=== PATIENT | female | born 1955 | race Caucasian/White ===

== ENCOUNTER 2016-10-26 11:06 | Emergency (ER) | payer MEDICARE ==
[2016-10-26 13:08] VITALS: BP 119/64
--- NOTE | 2016-10-26 13:18 | UC ---
Ear Complaint HPI - HPI Summary HPI Summary: patient is not able to hear our of left ear, started yesterday, denies pain, she typically gets wax buildup. Denies any other symptoms. - History of Current Complaint Chief Complaint: UCEar Stated Complaint: EAR PAIN Time Seen by Provider: 10/26/16 13:09 Hx Obtained From: Patient ?: No Onset/Duration: Sudden Onset, Lasting Days Severity Initially: Mild Severity Currently: Mild Associated Signs/Symptoms: Positive: Hearing Loss - Allergies/Home Medications Allergies/Adverse Reactions: Allergies Allergy/AdvReac Type Severity Reaction Status Date / Time Iodine Allergy Mild skin Verified 10/26/16 12:59 reddened Home Medications: Home Medications Sulfamethox/Trimethoprim DS* [Bactrim DS 800/160 TAB*] 1 tab PO EVERY OTHER DAY 10/26/16 [History Confirmed 10/26/16] predniSONE TAB* [Deltasone TAB*] 4 mg PO DAILY 10/26/16 [History Confirmed 10/26] PMH/Surg Hx/FS Hx/Imm Hx Previously Healthy: Yes Endocrine History Of: Denies: Diabetes, Thyroid Disease, Hyperthyroidism, Hypothyroidism Cardiovascular History Of: Reports: Hypertension Denies: Pacemaker/ICD Neurological History Of: Denies: TIA, Seizures Psychological History Of: Reports: Anxiety - ON MEDICATION FOR, Depression - ON MEDICATION FOR Cancer History Of: Denies: Breast Cancer - Surgical History Surgical History: Yes Surgery Procedure, Year, and Place: right leg AKA. appendectomy. ischemic bowel. . I&D RIGHT LEG - Family History Known Family History: Positive: Cardiac Disease, Hypertension - Social History Alcohol Use: None Substance Use Type: None Smoking Status (MU): Light Every Day Tobacco Smoker Type: Cigarettes Amount Used/How Often: 5 cigarettes a day Have You Smoked in the Last Year: Yes - Immunization History Most Recent Influenza Vaccination: 2012 Most Recent Tetanus Shot: unk Most Recent Pneumonia Vaccination: 2012 Review of Systems Constitutional: Negative Skin: Negative Eyes: Negative ENT: Ear Ache, Other - decreased hearing Respiratory: Negative Cardiovascular: Negative Gastrointestinal: Negative Genitourinary: Negative Motor: Negative Neurovascular: Negative Musculoskeletal: Negative Neurological: Negative Psychological: Negative All Other Systems Reviewed And Are Negative: Yes Physical Exam Triage Information Reviewed: Yes Appearance: Well-Appearing, Well-Nourished, Pain Distress Vital Signs: Initial Vital Signs Temp 97.9 F 10/26/16 13:03 Pulse 90 10/26/16 13:03 Resp 16 10/26/16 13:03 BP 119/64 10/26/16 13:03 Pulse Ox 97 10/26/16 13:03 Vital Signs Reviewed: Yes Eye Exam: Normal ENT: Positive: Other: - left cerumen impaction, Right TM pearly garcia Dental Exam: Normal Neck exam: Normal Neck: Positive: Supple, Nontender, No Lymphadenopathy Respiratory Exam: Normal Respiratory: Positive: Chest non-tender, Lungs clear, Normal breath sounds Cardiovascular Exam: Normal Cardiovascular: Positive: RRR, No Murmur, Pulses Normal Abdominal Exam: Normal Abdomen Description: Positive: Nontender, No Organomegaly, Soft Bowel Sounds: Positive: Present Musculoskeletal Exam: Normal Musculoskeletal: Positive: Strength Intact, ROM Intact, No Edema Neurological Exam: Normal Neurological: Positive: Alert, Muscle Tone Normal Psychological Exam: Normal Skin Exam: Normal Ear Complaint Course/Dx - Course Course Of Treatment: hx obtained, exam performed, medication reviewed, left ear irrigation ordered and performed with good results - Differential Dx/Diagnosis Differential Diagnosis/HQI/PQRI: Cerumen Impaction, Otitis Externa, Otitis Media , URI Provider Diagnoses: left ear cerumen impaction. decreased hearing Discharge - Discharge Plan Condition: Stable Disposition: HOME Patient Education Materials: Cerumen Impaction (ED) Referrals: Ivana Oneal MD [Primary Care Provider] - Additional Instructions: Today you had your ear irrigated for cerumen removal. Follow up as needed.
== END 2016-10-26 13:40 | disposition home or self-care (01) ==
LOC: UCCORT 11:06
DX: H61.22 Impacted cerumen, left ear (principal); I10 Essential (primary) hypertension; F41.8 Other specified anxiety disorders; Z89.611 Acquired absence of right leg above knee; F17.210 Nicotine dependence, cigarettes, uncomplicated
CPT/HCPCS: 99213; G0463

== ENCOUNTER 2017-12-11 17:45 | Emergency (ER) | payer MEDICARE ==
--- NOTE | 2017-12-11 20:45 | RAD ---
INDICATION: Chest pain COMPARISON: March 26, 2014 TECHNIQUE: PA dual-energy views were obtained. FINDINGS: Bones/Soft Tissues: There are no acute bony findings. Cardiomediastinal: The cardiomediastinal silhouette is normal. Lungs: There are no infiltrates. There is hyperinflation. Pleura: There are no pleural effusions. Other: None IMPRESSION: HYPERINFLATION. NO ACTIVE DISEASE.
[2017-12-11 20:53] LABS: ABS Basophils 0 10^3/ul (0-0.2); ABS Eosinophils 0.2 10^3/ul (0-0.6); ABS Lymphocytes 1.5 10^3/ul (1.0-4.8); ABS Monocytes 0.7 10^3/ul (0-0.8); ABS Neutrophils 5.3 10^3/ul (1.5-7.7); ABS Nucleated RBC 0 10^3/ul; Eosinophil % 2.4 % (0-6); Hematocrit 41 % (35-47); Lymphocyte % 19.8 % (25-47); Mean Corpuscular HGB Conc 35 g/dl (31-36); Mean Corpuscular Hemoglobin 34 pg (27-31); Mean Corpuscular Volume 98 fL (80-97); Mean Platelet Volume 8.7 um3 (7.4-10.4); Nucleated Red Blood Cells % 0; Platelet Count 237 10^3/ul (150-450); Red Blood Count 4.17 10^6/ul (4.0-5.4); Red Cell Distribution Width 15 % (10.5-15); White Blood Count 7.7 10^3/ul (3.5-10.8)
[2017-12-11 21:06] VITALS: BP 167/89
[2017-12-11 21:15] LABS: EGFR Non-African American 58.9 (>60)
== END 2017-12-11 22:21 | disposition left against medical advice (07) ==
LOC: ED 17:45
DX: R07.9 Chest pain, unspecified (principal); Z53.21 Procedure and treatment not carried out due to patient leaving prior to being seen by health care provider
CPT/HCPCS: 36415; 71045; 80053; 83605; 84484; 85025; 93005; 99282

== ENCOUNTER 2018-10-28 12:12 | Emergency (ER) | payer MEDICARE ==
--- OUTSIDE RECORDS SUMMARY | 2018-10-28 12:17 | XMS REPORT | Continuity of Care Document ---
:1955 External Reference #:[id number] Author Name Vandana Burns PA Address [address] [place] [address] Care Team Providers Name Role Phone Vandana Burns PA Care Team Information Tunneller Unavailable Vandana Burns PA Primary Care Physician Unavailable Payers Date Identification Numbers Payment Provider Subscriber Policy Number: [id number] [employer] Lyric Rosenthal PayID: [id number] [address] [address] [place] [address] Advance Directives Description No Information Available Problems Date Description Provider Status Onset: 11/18/2016 Mixed hyperlipidemia Butch Dill MD Active Onset: 09/28/2017 Closed fracture of metatarsal bone Ana Myers PA Active Onset: 10/05/2017 Closed fracture of third metatarsal bone Ana Myers PA Active Onset: 10/05/2017 Symptom of skin and integumentary tissue Ana Myers PA Active Onset: 10/13/2017 Closed fracture of base of fifth Ana Myers PA Active metatarsal bone Onset: 10/13/2017 Closed fracture of fourth metatarsal Ana Myers PA Active bone Onset: 02/23/2018 Closed fracture of phalanx of foot Ana Myers PA Active Family History Date Family Member(s) Observation Comments General Cancer First Brother Pancreatic Cancer Social History Type Date Description Comments Sex Unknown Marital Status Patient is Lives With Alone Home Environment Lives Alone Diet Healthy, Well Balanced Occupation Retired Work Status Retired Hand Dominance Right-handed ADL's/IADL's Dependent with Uses a motorized ambulating wheelchair when Left orthosis is removed. Tobacco Use Start: Unknown Currently smokes 1-5 5 Not going to quit. Cigarettes Daily Smoking Status Reviewed: 10/21/18 Currently smokes 1-5 5 Not going to quit. Cigarettes Daily Smokeless Tobacco Never Used Smokeless Tobacco ETOH Use Rarely consumes alcohol Tobacco Use Start: Unknown Light tobacco smoker (10 or fewer cigarettes/day) Recreational Drug Use Denies Drug Use Allergies, Adverse Reactions, Alerts Date Description Reaction Status Severity Comments 09/28/2017 Iodine Active 11/18/2016 NKDA Inactive Medications Medication Date Status Form Strength Qnty SIG Indications Ordering Provider Clindamycin Active Capsules 300mg 28cap 1 tab by [id number] TIMMY Rizzo 9 s mouth four MD Steven times a day as directed Fosamax Active Tablets 70mg take one Unknown 0 tablet by mouth once weekly Sulfamethoxazo Active Tablets 800-160mg take one Unknown le/Trimethopri 0 tablet by m DS mouth M-W-F Celexa Active Tablets 20mg 1 by mouth Unknown 0 every day Methotrexate Active Tablets 2.5mg 4 pills Unknown 0 once a week Nifedipine ER Active Tablets ER 30mg 1 by mouth Unknown 30 MG 0 24HR every day Folic Acid Active 5mg 1 po daily Unknown 0 Prednisone Active Tablets 1mg 4 po daily Unknown 0 Gabapentin Active Tablets 600mg 1 po qid Hernandez, 0 Samuel MOE Lidocaine Active Ointment 5% Apply A Unknown 0 Small Amount To Affected Area Two Times A Day Clobetasol Active Gel 0.05% Apply A Unknown Propionate 0 Small Amount Over Affected Areas With Psoriasis Two Times A Da Atorvastatin Active Tablets 40mg 1 po daily Salman, Calcium 0 MD Ivana Humira Active PSKT 40mg/0.8M as Unknown 0 L directed Omeprazole Hx Capsules 20mg 30cap 1 tab by Aniyah 7 - DR s mouth in Butch, Devaughn morning with breakfast Golytely Hx Solution 236gm 4000m drink half Z12.11 Aniyah 7 - Rec l the Butch Unknown evening MD before and half the morning of the procedure (1 cup every 10') Dulcolax Hx Tablets DR 5mg 4tabs 4 tablets Z12.11 Aniyah 7 - taken a , Butch, Unknown 8pm the MD day before the procedure Magnesium Hx Solution 1.745GM/3 296ml Z12.11 Aniyah Citrate 7 - 0ML , Butch, Mateusz MOE Meloxicam Hx Tablets 7.5mg 1 by mouth Unknown 0 - every day 8 Clobetasol Hx Cream 0.05% Apply To Unknown Propionate 0 - Affected Area S 7 Three Times A Day Nifedical XL Hx Tablets ER 30mg Unknown 0 - 24HR 7 Sulfamethoxazo Hx Tablets 400-80mg Take One Unknown le-Trimethopri 0 - Tablet By m Mouth 7 Every Day Cephalexin Hx Capsules 500mg 30cap by mouth Juan R 0 - s as Elysia A directed [employer]UP[employer]AF[employer] ADVISER 8 Immunizations Description No Information Available Vital Signs Date Vital Result Comment 10/21/2018 10:40am BP Systolic Sitting Left Arm 142 mmHg BP Diastolic Sitting Left Arm 62 mmHg Body Temperature 97.6 F Heart Rate 98 /min Weight 160.25 lb O2 % BldC Oximetry 97 % 08/13/2018 2:07pm BP Systolic Sitting Left Arm 124 mmHg BP Diastolic Sitting Left Arm 72 mmHg Body Temperature 98.7 F Heart Rate 91 /min Height 67.5 inches 5'7.50" Weight 165.25 lb BMI (Body Mass Index) 25.5 kg/m2 BSA (Body Surface Area) 1.87 m2 [place] body weight in kilograms 62 kg O2 % BldC Oximetry 96 % 02/23/2018 11:40am BP Systolic Sitting Left Arm 122 mmHg BP Diastolic Sitting Left Arm 85 mmHg Body Temperature 97.8 F Heart Rate 85 /min Respiratory Rate 17 /min Height 69 inches 5'9" Per Patient Weight 160.00 lb BMI (Body Mass Index) 23.6 kg/m2 BSA (Body Surface Area) 1.88 m2 [place] body weight in kilograms 66 kg O2 % BldC Oximetry 97 % 11/12/2017 1:17pm BP Systolic 134 mmHg BP Diastolic 76 mmHg Body Temperature 97.7 F Heart Rate 98 /min Respiratory Rate 17 /min Height 69 inches 5'9" Per Patient Weight 160.00 lb BMI (Body Mass Index) 23.6 kg/m2 BSA (Body Surface Area) 1.88 m2 [place] body weight in kilograms 66 kg Pain Level 0 10/26/2017 1:04pm BP Systolic Sitting Right Arm 117 mmHg BP Diastolic Sitting Right Arm 74 mmHg Body Temperature 97.2 F Heart Rate 92 /min Respiratory Rate 20 /min Height 69 inches 5'9" Per Patient Weight 160.00 lb BMI (Body Mass Index) 23.6 kg/m2 BSA (Body Surface Area) 1.88 m2 [place] body weight in kilograms 66 kg O2 % BldC Oximetry 93 % Ra Pain Level 0 10/13/2017 1:34pm BP Systolic Sitting Left Arm 120 mmHg BP Diastolic Sitting Left Arm 73 mmHg Heart Rate 87 /min Respiratory Rate 16 /min Height 69 inches 5'9" Per Patient Weight 160.00 lb BMI (Body Mass Index) 23.6 kg/m2 BSA (Body Surface Area) 1.88 m2 [place] body weight in kilograms 66 kg O2 % BldC Oximetry 96 % Ra Pain Level 0 10/05/2017 1:27pm BP Systolic Sitting Left Arm 135 mmHg BP Diastolic Sitting Left Arm 80 mmHg Height 69 inches 5'9" Per Patient Weight 158.00 lb pt stated BMI (Body Mass Index) 23.3 kg/m2 BSA (Body Surface Area) 1.87 m2 [place] body weight in kilograms 66 kg Pain Level 0 09/28/2017 11:34am BP Systolic Sitting Right Arm 133 mmHg BP Diastolic Sitting Right Arm 76 mmHg Body Temperature 97.1 F Heart Rate 79 /min Respiratory Rate 18 /min Height 69 inches 5'9" Per Patient Weight 158.00 lb Estimated-Per Pt BMI (Body Mass Index) 23.3 kg/m2 BSA (Body Surface Area) 1.87 m2 [place] body weight in kilograms 66 kg 05/28/2017 1:43pm BP Systolic Sitting Left Arm 136 mmHg BP Diastolic Sitting Left Arm 88 mmHg Heart Rate 89 /min Respiratory Rate 16 /min Weight 159.00 lb 05/19/2017 11:47am BP Systolic Sitting Left Arm 150 mmHg BP Diastolic Sitting Left Arm 80 mmHg Heart Rate 82 /min Respiratory Rate 16 /min Weight 158.00 lb BSA (Body Surface Area) 1.87 m2 [place] body weight in kilograms 66 kg 11/18/2016 11:14am BP Systolic 132 mmHg BP Diastolic 82 mmHg Heart Rate 90 /min Weight 162.00 lb Results Test Date Facility Test Result H/L Range Note Urine Dipstick 08/13/2018 [facility] Color yellow Yellow Ua Clarity clear Clear Ua Leuko trace Negative Ua Nitrite negative Negative Ua Urobilinogen 0.2 0.2 - 1.0 E.U./dL Ua Protein negative Negative Ua PH 6.5 6.5-7.5 Ua Blood trace Negative Ua Specific [place] 1.005 Low 1.010-1.030 Ua Ketones negative Negative Ua Bilirubin negative Negative Ua Glucose negative Negative Comprehensive Metabolic 05/19/2017 [facility] Glucose 110 mg/dL High 74-106 1 [address] [place] [address] [phone] BUN 13 mg/dL N 7-18 Creatinine 0.8 mg/dL N 0.6-1.3 Glom Filtration Rate, Estimate >60 mL/min >60 If >60 mL/min >60 2 BUN/Creat 16.2 ratio Sodium 140 mmol/L N 136-145 Potassium 3.7 mmol/L N 3.5-5.1 Chloride 105 mmol/L N 98-107 Carbon Dioxide 26 mmol/L N 21-32 Anion Gap 9 mEq/L N 8-16 Calcium 9.3 mg/dL N 8.5-10.1 Total Protein 7.3 g/dL N 6.4-8.2 Albumin 4.1 g/dL N 3.4-5.0 Globulin 3.2 g/dL N 1.9-4.3 Alb/Glob 1.3 ratio Bilirubin,Total 0.3 mg/dL N 0.2-1.0 Sgot/Ast 48 U/L High 15-37 SGPT/Alt 126 U/L High 12-78 Alkaline Phosphatase 111 U/L N 45-117 Laboratory test finding 05/19/2017 [facility] Amylase 60 U/L N 25-115 [address] [place] [address] [phone] Lipase 247 U/L N 56-289 1 R10.11 2 Note: Persistent reduction for 3 months or more in an eGFR <60 mL/min/1.73 m2 defines CKD. Patients with eGFR values >/=60 mL/min/1.73 m2 may also have CKD if evidence of persistent proteinuria is present. The original MDRD equation for estimated GFR is not valid for patients less than 18 years of age. Additional information may be found at www.kdoqi.org. Procedures Date Code Description Status 10/21/2018 82567 Incision And Drainage Of Hematoma, Seroma Or Fluid Completed Collection 09/28/2018 07576 Eye Exam New Patient Comprehensive Completed 02/23/2018 47296 Radiology, Foot, Complete-3 Views Completed 02/23/2018 72001 Radiology, Foot, Complete-3 Views Completed 02/23/2018 59135 Toe Fracture Lesser Completed 11/12/2017 58436 Radiology, Foot, Complete-3 Views Completed 10/26/2017 59699 Radiology, Foot, Complete-3 Views Completed 10/26/2017 30203 Radiology, Foot, Complete-3 Views Completed 10/13/2017 97713 Radiology, Foot, Complete-3 Views Completed 10/13/2017 91727 Radiology, Foot, Complete-3 Views Completed 10/05/2017 98577 Radiology, Foot, Complete-3 Views Completed 10/05/2017 78925 Radiology, Foot, Complete-3 Views Completed 10/05/2017 11666 Application short leg cast (below knee to toes) Completed 09/28/2017 35765 FX Metatarsal-Closed W/O Completed 12/08/2016 78853 Colonoscopy With Biopsy Completed 12/08/2016 26146 EGD With Biopsy Completed 12/08/2016 [id number] Colonoscopy Completed 07/27/2016 [id number] Mammogram Completed Encounters Type Date Location Provider Dx Diagnosis Office Visit 10/21/2018 Family Medicine Steven Rizzo MD W19.xxxA Unspecified fall, 10:45a [address] initial encounter Office Visit 08/13/2018 Family Medicine Vandana Burns, 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 Hyperlipidemia, unspecified H02.402 Unspecified ptosis of left eyelid L40.8 Other psoriasis Z71.6 Tobacco abuse counseling Office Visit 02/23/2018 11:15a Orthopaedic Office Ana Myers, M79.675 Pain in left PA toe(s) S92.515A Nondisp fx of proximal phalanx of left lesser toe(s), init Office Visit 10/05/2017 1:30p Orthopaedic Office Ana Myers, R23.8 Other skin PA changes S92.335D Nondisp fx of 3rd metatarsal bone, l ft, 7thD S92.352D Disp fx of 5th metatarsal bone, l ft, 7thD S92.342D Disp fx of 4th metatarsal bone, l ft, 7thD S92.342A Disp fx of fourth metatarsal bone, left foot, init Office Visit 09/28/2017 Orthopaedic Ana Myers, S92.351A Disp fx of fifth 11:00a Office PA metatarsal bone, right foot, init S92.334A Nondisp fx of third metatarsal bone, right foot, init S92.341A Disp fx of fourth metatarsal bone, right foot, init R23.8 Other skin changes Office Visit 05/28/2017 1:45p Butch Frank MD R10.11 Right upper quadrant pain Office Visit 05/19/2017 11:45a Butch Frank MD K63.5 Polyp of colon R10.11 Right upper quadrant pain Office Visit 11/18/2016 11:15a Butch Frank MD R10.9 Unspecified abdominal pain Z12.11 Encounter for screening for malignant neoplasm of colon Plan of Treatment Future Appointment(s):11/17/2018 1:00 pm - Vandana Burns PA at [facility] RD09/28/2018 - Butch Hernandez MDH02.403 Unspecified ptosis of bilateral eyelidsComments:- left > right- not fatiguable; no diplopia- with brow recruitment- dermatochalasis with what appears to be levator dehissence as wellReferral:Morgan Childers MD, OphthalmologyFollow up:respectfully request eval by [email or web address] Combined forms of age-related cataract, bilateralComments:- not visually significant or bothersome- follow at this time
--- OUTSIDE RECORDS SUMMARY | 2018-10-28 12:17 | XMS REPORT | Continuity of Care Document ---
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 Vandana Burns PA Primary Care Physician Unavailable Payers Date Identification Numbers Payment Provider Subscriber Policy Number: [id number] [employer] Lyric Rosenthal PayID: [id number] [address] [address] [place] [address] Advance Directives Description No Information Available Problems [...] 600mg 1 po qid Hernandez, 0 Samuel Lidocaine Active Ointment 5% Apply A Unknown [...] 7 - DR s mouth in Butch, Mateusz the MD morning with breakfast Golytely Hx Solution 236gm 4000m drink half Z12.11 Aniyah 7 - Rec l the Butch, Mateusz evening MD before and half the morning of the procedure (1 cup every 10') Dulcolax Hx Tablets DR 5mg 4tabs 4 tablets Z12.11 Aniyah 7 - taken a , Mateusz Rae 8pm the MD day before the procedure Magnesium Hx Solution 1.745GM/3 296ml Z12.11 Aniyah Citrate 7 - 0ML , Mateusz Rae MD Meloxicam Hx Tablets 7.5mg 1 by mouth [...] 0 - s as Elysia A directed 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 8 Immunizations Description No Information Available Vital [...] kg/m2 BSA (Body Surface Area) 1.87 m2 [place] body weight in kilograms 62 kg O2 % BldC Oximetry 96 % 02/23/2018 11:40am BP Systolic Sitting Left Arm 122 mmHg BP Diastolic Sitting Left Arm 85 mmHg Body Temperature 97.8 F Heart Rate 85 /min Respiratory Rate 17 /min Height 69 inches 5'9" Per Patient Weight 160.00 lb BMI (Body Mass Index) 23.6 kg/m2 BSA (Body Surface Area) 1.88 m2 [place] body weight in kilograms 66 kg O2 % BldC Oximetry 97 % 11/12/2017 1:17pm BP Systolic 134 mmHg BP Diastolic 76 mmHg Body Temperature 97.7 F Heart Rate 98 /min Respiratory Rate 17 /min Height 69 inches 5'9" Per Patient Weight 160.00 lb BMI (Body Mass Index) 23.6 kg/m2 BSA (Body Surface Area) 1.88 m2 [place] body weight in kilograms 66 kg Pain Level 0 10/26/2017 1:04pm BP Systolic Sitting Right Arm 117 mmHg BP Diastolic Sitting Right Arm 74 mmHg Body Temperature 97.2 F Heart Rate 92 /min Respiratory Rate 20 /min Height 69 inches 5'9" Per Patient Weight 160.00 lb BMI (Body Mass Index) 23.6 kg/m2 BSA (Body Surface Area) 1.88 m2 [place] body weight in kilograms 66 kg O2 % BldC Oximetry 93 % Ra Pain Level 0 10/13/2017 1:34pm BP Systolic Sitting Left Arm 120 mmHg BP Diastolic Sitting Left Arm 73 mmHg Heart Rate 87 /min Respiratory Rate 16 /min Height 69 inches 5'9" Per Patient Weight 160.00 lb BMI (Body Mass Index) 23.6 kg/m2 BSA (Body Surface Area) 1.88 m2 [place] body weight in kilograms 66 kg O2 % BldC Oximetry 96 % Ra Pain Level 0 10/05/2017 1:27pm BP Systolic Sitting Left Arm 135 mmHg BP Diastolic Sitting Left Arm 80 mmHg Height 69 inches 5'9" Per Patient Weight 158.00 lb pt stated BMI (Body Mass Index) 23.3 kg/m2 BSA (Body Surface Area) 1.87 m2 [place] body weight in kilograms 66 kg Pain Level 0 09/28/2017 11:34am BP Systolic Sitting Right Arm 133 mmHg BP Diastolic Sitting Right Arm 76 mmHg Body Temperature 97.1 F Heart Rate 79 /min Respiratory Rate 18 /min Height 69 inches 5'9" Per Patient Weight 158.00 lb Estimated-Per Pt BMI (Body Mass Index) 23.3 kg/m2 BSA (Body Surface Area) 1.87 m2 [place] body weight in kilograms 66 kg 05/28/2017 [...] lb BSA (Body Surface Area) 1.87 m2 [place] body weight in kilograms 66 kg 11/18/2016 [...] 6.5-7.5 Ua Blood trace Negative Ua Specific [place] 1.005 Low 1.010-1.030 Ua Ketones negative Negative Ua Bilirubin negative Negative Ua Glucose negative Negative Comprehensive Metabolic 05/19/2017 [facility] Glucose 110 mg/dL High 74-106 1 [address] [place] [address] [phone] BUN 13 mg/dL N 7-18 Creatinine 0.8 [...] U/L N 45-117 Laboratory test finding 05/19/2017 [facility] Amylase 60 U/L N 25-115 [address] [place] [address] [phone] Lipase 247 U/L N 56-289 1 R10.11 [...] [email or web address]. Procedures Date Code Description Status 10/21/2018 67129 I & D Of Abscess/Simple Or Single Completed 09/28/2018 81533 Eye Exam New Patient Comprehensive Completed 02/23/2018 35389 Radiology, Foot, Complete-3 Views Completed 02/23/2018 81425 Radiology, Foot, Complete-3 Views Completed 02/23/2018 41552 Toe Fracture Lesser Completed 11/12/2017 15512 Radiology, Foot, Complete-3 Views Completed 10/26/2017 17573 Radiology, Foot, Complete-3 Views Completed 10/26/2017 66057 Radiology, Foot, Complete-3 Views Completed 10/13/2017 31698 Radiology, Foot, Complete-3 Views Completed 10/13/2017 41946 Radiology, Foot, Complete-3 Views Completed 10/05/2017 84978 Radiology, Foot, Complete-3 Views Completed 10/05/2017 49569 Radiology, Foot, Complete-3 Views Completed 10/05/2017 59040 Application short leg cast (below knee to toes) Completed 09/28/2017 48121 FX Metatarsal-Closed W/O Completed 12/08/2016 72897 Colonoscopy With Biopsy Completed 12/08/2016 23403 EGD With Biopsy Completed 12/08/2016 [id number] Colonoscopy Completed 07/27/2016 [id number] Mammogram Completed Encounters Type Date Location Provider Dx Diagnosis Office Visit 10/21/2018 Family Medicine Steven Rizzo MD W19.xxxD Unspecified fall, 10:[address] subsequent encounter Office Visit 08/13/2018 Family [facility] Vandana Burns, L40.52 Psoriatic arthritis 2:[address] [...] 1:00 pm - Vandana Burns PA at [facility] RD09/28/2018 - Butch Hernandez MDH02.403 Unspecified ptosis of bilateral eyelidsComments:- left > right- not fatiguable; no diplopia- with brow recruitment- dermatochalasis with what appears to be levator dehissence as wellReferral:Morgan Childers MD, OphthalmologyFollow up:respectfully request eval by [email or web address] Combined forms of age-related cataract, bilateralComments:- not visually significant or bothersome- follow at this time
[2018-10-28 13:05] VITALS: BP 108/68
--- NOTE | 2018-10-28 13:14 | UC ---
Truncal Trauma HPI - HPI Summary HPI Summary: Patient slipped at grocery store 4 days ago, fell into the side of the cart landing on the right ribs. now pain, bruising and soreness persist - History Of Current Complaint Chief Complaint: UCGeneralIllness Stated Complaint: FALL,LEFT RIB PAIN Time Seen by Provider: 10/28/18 13:05 Hx Obtained From: Patient ?: No Onset/Duration: Sudden Onset, Lasting Days Onset Of Pain: Immediate Severity Initially: Mild Severity Currently: Mild Pain Intensity: 2 Aggravating Factor(s): Movement Alleviating factor(s): Nothing Associated Signs And Symptoms: Positive: Negative - Allergies/Home Medications Allergies/Adverse Reactions: Allergies Allergy/AdvReac Type Severity Reaction Status Date / Time No Known Allergies Allergy Verified 10/28/18 12:58 Home Medications: Home Medications Adalimumab (NF) [Humira Pen (NF)] 1 syr SEE INSTRUCTIONS 10/28/18 [History Confirmed 10/28/18] NIFEdipine CAP* [Procardia CAP*] 30 mg DAILY 10/28/18 [History Confirmed ] PMH/Surg Hx/FS Hx/Imm Hx Previously Healthy: Yes - Surgical History Surgical History: Yes Surgery Procedure, Year, and Place: right leg AKA. appendectomy. ischemic bowel. . I&D RIGHT LEG - Family History Known Family History: Positive: Cardiac Disease, Hypertension - Social History Alcohol Use: Occasionally Substance Use Type: None Smoking Status (MU): Light Every Day Tobacco Smoker Type: Cigarettes Amount Used/How Often: 5 cigarettes a day Have You Smoked in the Last Year: Yes - Immunization History Most Recent Influenza Vaccination: 2012 Most Recent Tetanus Shot: unk Most Recent Pneumonia Vaccination: 2012 Review of Systems All Other Systems Reviewed And Are Negative: Yes Constitutional: Positive: Negative Skin: Positive: Bruising Eyes: Positive: Negative ENT: Positive: Negative Respiratory: Positive: Negative Cardiovascular: Positive: Negative Gastrointestinal: Positive: Negative Genitourinary: Positive: Negative Motor: Positive: Negative Neurovascular: Positive: Negative Musculoskeletal: Positive: Myalgia Neurological: Positive: Negative Psychological: Positive: Negative Is Patient Immunocompromised?: No Physical Exam Triage Information Reviewed: Yes Appearance: Well-Appearing, Well-Nourished, Pain Distress Vital Signs: Initial Vital Signs Temp 96.9 F 10/28/18 13:01 Pulse 79 10/28/18 13:01 Resp 16 04/04/19 13:01 BP 108/68 10/28/18 13:01 Pulse Ox 99 10/28/18 13:01 Vital Signs Reviewed: Yes Eye Exam: Normal ENT Exam: Normal Dental Exam: Normal Neck exam: Normal Neck: Positive: Supple, Nontender, No Lymphadenopathy Respiratory Exam: Normal Respiratory: Positive: Chest non-tender, Lungs clear, Normal breath sounds Cardiovascular Exam: Normal Cardiovascular: Positive: RRR, No Murmur, Pulses Normal Abdominal Exam: Normal Musculoskeletal: Positive: Strength Intact, ROM Intact - but painful with trunk movment Neurological Exam: Normal Psychological Exam: Normal Skin: Positive: Other - bruising to left breast and side Truncal Trauma Course/Dx - Course Course Of Treatment: hx obtained, exam performed ,meds reviewed, xray obtained and is negative for fracture, patient did not wait around for results, left without our knowledge. - Differential Dx/Diagnosis Differential Diagnosis/HQI/PQRI: Chest Wall Contusion, Rib Fracture Provider Diagnosis: Rib contusion Discharge - Sign-Out/Discharge Documenting (check all that apply): Patient Departure All imaging exams completed and their final reports reviewed: No Studies - Discharge Plan Condition: Stable Disposition: HOME Patient Education Materials: Rib Contusion (ED) Referrals: Vandana Burns PA [Primary Care Provider] - Additional Instructions: 1. no evidence of fracture 2. Heat and strech the area 3. Use tylenol and ibuprofen as needed. - Billing Disposition and Condition Condition: STABLE Disposition: Home
== END 2018-10-28 14:12 | disposition home or self-care (01) ==
LOC: UCCORT 12:12
DX: S20.219A Contusion of unspecified front wall of thorax, initial encounter (principal); F17.210 Nicotine dependence, cigarettes, uncomplicated; W18.49XA Other slipping, tripping and stumbling without falling, initial encounter; Y92.512 Supermarket, store or market as the place of occurrence of the external cause
CPT/HCPCS: 99211; G0463

== ENCOUNTER 2019-07-23 09:22 | Emergency (ER) | payer MEDICARE ==
--- OUTSIDE RECORDS SUMMARY | 2019-07-23 09:31 | XMS REPORT | Summary of Care ---
:1955 Author Organization [facility] Address [address] [place] [address] Care Team Providers Name Role Phone Vandana Burns Primary Care Provider Reason for Visit Reason Comments New Patient bilateral upper extremities, EMG results Encounter Details Date Type Department Care Team Description 07/07/2019 [facility], [facility] Bilateral hand pain (Primary Dx); [facility] [address] Bilateral hand numbness [address] [facility], [address] [place] [address] [phone] Allergies Active Allergy Reactions Severity Noted Date Comments Contrast Dye Other (See Comments) Medium 05/30/2014 Turns Red. documented as of this encounter (statuses as of 07/07/2019) Medications Medication Sig Dispensed Refills Start Date End Date Status ascorbic acid Take 500 mg by 0 Active (VITAMIN C) 500 MG mouth daily. tablet calcium carbonate Take 600 mg by 0 Active (OS-SAMM) 600 MG TABS mouth 2 (two) times daily with meals. Misc. Devices Use as directed. 1 each 0 12/23/2012 Active (DURABLE MEDICAL NEED A CANE EQUIPMENT SEE SIG) BECAUSE OF MISC REPETITIVE FALLS Misc. Devices Use as directed. 1 each 0 06/29/2013 Active (DURABLE MEDICAL Wheelchair EQUIPMENT SEE SIG) maintenance and MISC battery replacement. citalopram (CELEXA) Take 20 mg by 0 Active 20 MG tablet mouth daily atorvastatin Take 40 mg by 0 05/30/2017 Active (LIPITOR) 40 MG mouth daily tablet halobetasol Apply tid to 1 Tube 6 08/25/2017 Active (ULTRAVATE) 0.05 % affected area ointment sulfamethoxazole-tri TAKE 1 TABLET BY 36 tablet 5 07/28/2018 Active methoprim (BACTRIM MOUTH EVERY OTHER DS,) DAY (THURSDAY, 800-160 MG per THURSDAY AND tabletIndications: THURSDAY) Polyarteritis nodosa clobetasol apply small amount 120 g 3 11/16/2018 11/15/2019 Active (TEMOVATE) 0.05 % to affected area cream bid. alendronate TAKE ONE TABLET BY 12 tablet 3 01/07/2019 Active (FOSAMAX) 70 MG MOUTH EVERY WEEK tablet gabapentin TAKE ONE TABLET BY 360 tablet 1 01/17/2019 Active (NEURONTIN) 600 MG MOUTH FOUR TIMES A tabletIndications: DAY Psoriatic arthritis NIFEdipine (ADALAT TAKE ONE TABLET BY 90 tablet 1 04/05/2019 Active CC) 30 MG 24 hr MOUTH EVERY DAY tablet predniSONE Take 1 tablet by 90 tablet 1 04/26/2019 07/25/2019 Active (DELTASONE) 5 MG mouth daily tablet methotrexate 2.5 MG Take 4 tablets by 48 tablet 3 05/30/2019 Active tabletIndications: mouth once a week Psoriatic arthritis Adalimumab 40 Inject 0.4 mLs 2 each 11 06/15/2019 Active MG/0.4ML into the skin Subcutaneous every 14 Pen-injector Kit (fourteen) days (HUMIRA)Indications: Psoriatic arthritis Folic Acid 1 MG Oral TAKE THREE TABLETS 270 tablet 2 07/05/2019 Active Tablet BY MOUTH EVERY DAY (FOLVITE)Indications : Psoriatic arthritis documented as of this encounter (statuses as of 07/07/2019) Active Problems Problem Noted Date Calculus of gallbladder and bile duct without cholecystitis or obstruction Overview: Added automatically from request for surgery [id number] Complication of amputated stump 07/21/2014 Tobacco use disorder 06/16/2014 Chronic wound of extremity 06/04/2014 Non-healing wound of amputation stump 05/26/2014 Amputation stump infection 04/07/2014 Psoriasis 09/22/2013 Psoriatic arthritis 09/22/2013 Skin rash 08/11/2013 Fracture of fifth metatarsal bone 06/29/2013 Fracture, foot 06/10/2013 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 ASD (atrial septal defect), ostium secundum documented as of this encounter (statuses as of 07/07/2019) Resolved Problems Problem Noted Date Resolved Date Hepatitis C 09/27/2015 06/05/2017 Neck pain 06/17/2015 03/05/2016 Opioid dependence 06/16/2014 03/05/2016 Pain disorder associated with psychological and physical 06/06/20142015 factors UTI (lower urinary tract infection) 08/11/2013 03/05/2016 Chest pain 08/11/2013 03/05/2016 Prepatellar bursitis of left knee 06/29/2013 03/05/2016 Knee effusion, left 06/29/2013 03/05/2016 FUO (fever of unknown origin) 05/19/2012 03/05/2016 Swelling of joint of lower leg 04/28/2012 03/05/2016 Depression 01/15/2012 03/05/2016 Hepatitis C infection 01/15/2012 06/05/2017 Chronic pain 01/15/2012 03/05/2016 documented as of this encounter (statuses as of 07/07/2019) Immunizations Name Administration Dates Next Due Influenza Quad IM with Pres (0.5 mL dose) 06/14/2015 documented as of this encounter Social History Tobacco Use Types Packs/Day Years Used Date Current Every Day Smoker Cigarettes 0.25 30 Quit: 07/11/2014 Smokeless Tobacco: Never Used Comments: approximately 5 cigarettes per day Alcohol Use Drinks/Week oz/Week Comments Yes 0 Standard drinks or equivalent 0.0 3 DRINKS A MONTH Sex Assigned at Date Recorded Not on file Job Start Date Occupation Industry Not on file Not on file Not on file Travel History Travel Start Travel End No recent travel history available. documented as of this encounter Last Filed Vital Signs Not on filedocumented in this encounter Patient Instructions Patient InstructionsKaterina Laws LPN - 07/07/2019 11:45 AM ESTThe patient is instructed to call the office with any question/concerns or if symptoms worsen. documented in this encounter Progress Notes Giovanni Martin MD - 07/07/2019 11:45 AM BONITA saw and examined the patient with my resident, Dr. Driscoll, and I agree with his assessment and plan. Specifically I want to assess via EMG studies the EIP and ECRL musculotendinous units of the right upper extremity. I say that because if they are functioning well I think she would be an excellent candidate for an EIP opponensplasty and ECRL tendon transfer with a 4 tailed extension from the toe extensors to correct the claw deformity. When I do a Lila maneuver on the right side she can extend all her PIP joints with the MP joints slightly flexed although she does have difficulty fully extending the PIP joint of the long finger. But in any event I think these transfers would help her significantly and she would be interested in discussing surgery so we are to proceed with the aforementioned study and I will see her back after the electrodiagnostic studies of the right upper extremity are performed. It is noted she just had electro- diagnostic studies 2 days ago which did document evidence of a severe polyneuropathy as well as a superimposed left median neuropathy consistent with carpal tunnel syndrome. This study was just of the left upper extremity. Both sides bother her but she is right-hand dominant and if she chose surgery she would want to do the right side. I spent about 20 minute with the patient with the majority of the time spent counseling her and coordinating her care. Freddie Jasmine MD - 06/2019 11:45 AM EST Chief Complaint: Bilateral Claw hand deformity HPI: Lyric Rosenthal is a 63 y.o. Female who presents for evaluation bilateral claw hands. She hassuffered with this condition for many years secondary to polyarteritis nodosa and poly-demyelinatingneuropathy. Overall, the patient states that her function is slowly improving. She has greater strength in her upper extremities as well as with gripping however she does state that she has difficulty with one-handed activities for example is difficult for her to grab a bottle of water. Her sensation is good but she does describe a little bit of decreased sensation at her fingertips. Otherwise she states that since her last evaluation which was over a decade ago she has improved significantly. Review of Systems: Please see HPI for pertinent positives. Other systems reviewed, please see patient intake form for detailed review of systems PHYSICAL EXAM Vital Signs: There were no vitals filed for this visit. General Appearance: well nourished, appearance is appropriate for age Orientation: awake and alert, NAD. Oriented to person, place, and time Physical exam: Bilateral upper extremities the patient has a resting claw hands bilaterally. She does have supple range of motion passively at the MCP and IP joints of the thumb and all fingers bilaterally she also has good passive flexion and extension and proceed up in a at the wrist. She has significant difficulty with opposition of thumb. She also has difficulty with full extension of her fingers. Imaging: No new Assessment / Plan: Lyric Rosenthal is a 63 y.o. 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 Overall, the patient states that she has improved over many years. However she is still dissatisfied with the fact that she has difficulty with gripping objects. Given the fact that she hassupple range of motion of all joints she would be a candidate for a tendinous procedure. Possible options include opponensplasty as well as augmentation of her extensor tendons to the digits. We willobtain further electrodiagnostic studies to evaluate the musculature. After the studies are complete we will see the patient to determine whether or not she is indeed a candidate for such a procedure. The patient was in agreement with this treatment plan and will follow up with us after her electrodiagnostic studies are complete. This document was dictated using [employer] software. A reasonable attempt at proof reading has been made to minimize errors. Please call our office if you have any questions. 8 this lady [id number] graft 1 1 cervix is is particle 6 6 heart is trying to help so so garglesdespite low no compression documented in this encounter Plan of Treatment Date Type Specialty Care Team Description 07/21/2019 Clinical Support Rheumatology 10/25/2019 Office Visit Rheumatology Samuel Burnett MD [address] [facility] [address] [place] [address] [phone] Health Maintenance Due Date Last Done Comments MMR Vaccines (1 of 1 - 1956 Standard series) Varicella Vaccines (1 of 2 1956 - 2-dose childhood series) Pneumococcal Vaccine: 1961 Pediatrics (0 to 5 Years) and At-Risk Patients (6 to 64 Years) (1 of 1 - PPSV23) DTaP,Tdap,and Td Vaccines 1962 (1 - Tdap) Cervical Cancer Screening 5 1976 years Colon Cancer Screening 10 2005 yrs Zoster Vaccines (1 of 2) 2005 Breast Cancer Screening 2 10/21/2017 10/22/2015 years Influenza Vaccine 04/26/2019 06/14/2015 Pneumococcal Vaccine: 65+ 2020 Years (1 of 2 - PCV13) HIV Screening Completed 04/04/2013 Hepatitis C Screening (B. Completed 06/17/2017, 06/16/2017, [id number]) 06/16/2017, Additional history exists HIB Vaccines Aged Out No longer eligible based on patient's age to complete this topic Hepatitis A Vaccines Aged Out No longer eligible based on patient's age to complete this topic Hepatitis B Vaccines Aged Out No longer eligible based on patient's age to complete this topic IPV Vaccines Aged Out No longer eligible based on patient's age to complete this topic documented as of this encounter Results Not on filedocumented in this encounter Visit Diagnoses Diagnosis Bilateral hand pain - Primary Pain in limb Bilateral hand numbness Disturbance of skin sensation documented in this encounter Additional Health Concerns Infection Noted Time Resolved Time Multiple or Any Other Drug Resistant Organism 07/17/2011 9:16 AM EST documented as of this encounter
--- OUTSIDE RECORDS SUMMARY | 2019-07-23 09:31 | XMS REPORT | Summary of Care ---
:1955 Author Organization [facility] Address [address] [place] [address] Care Team Providers Name Role Phone Vandana Burns Primary Care Provider Reason for Referral Consultation (Routine) Status Reason Specialty Diagnoses / Referred By Referred To Contact Procedures Contact Authorized Neurology Diagnoses Bilateral hand pain Bilateral hand numbness Marla Rojas, Neurology Private Procedures EMG B/L upper - [facility] [address] [facility] [address] [place], [place] [address] [address] [place], [place] Phone: [phone] Email: [email or web address] Reason for Visit Reason Comments New Patient Bilateral hand pain. Xrays. Surgical (Routine) Status Reason Specialty Diagnoses / Referred By Referred To Procedures Contact Contact Authorized Specialty Orthopedic Diagnoses Hand deformities, acquired, left Hand deformities, acquired, right Mario Burnett Jon, Services Surgery MD ABHI Baker Required [address] [facility] [address] [place] [address] [place] [address]nd Floor Suite [facility] [address] [place] [phone] Phone: Fax: Email: Email: [email or web address] Encounter Details Date Type Department Care Team Description 06/29/2019 Office Visit [facility] Eduardo, MD [address] [place] [address] [phone] Bilateral hand pain (Primary Dx); LLP Marla Rojas, ARNIE [address] [place], [place] [id number] Bilateral hand numbness [address] [place] [address] Allergies Active Allergy Reactions Severity Noted Date Comments Contrast Dye Other (See Comments) Medium 05/30/2014 Turns Red. documented as of this encounter (statuses as of 06/29/2019) Medications Medication Sig Dispensed Refills Start Date [...] 07/28/2018 Active methoprim (BACTRIM MOUTH EVERY OTHER DS,SEPT DS) DAY (THURSDAY, 800-160 MG per THURSDAY AND tabletIndications: THURSDAY) Polyarteritis nodosa folic acid (FOLVITE) TAKE THREE TABLETS 270 tablet 2 10/04/2018 Active 1 MG BY MOUTH EVERY DAY tabletIndications: Psoriatic arthritis clobetasol apply small amount 120 g 3 [...] Pen-injector Kit (fourteen) days (HUMIRA)Indications: Psoriatic arthritis documented as of this encounter (statuses as of 06/29/2019) Active Problems Problem Noted Date Calculus of gallbladder and bile duct without cholecystitis or obstruction Overview: Added automatically from request for surgery [id number] Complication of amputated stump 07/21/2014 Tobacco use [...] as of this encounter (statuses as of 06/29/2019) Resolved Problems Problem Noted Date Resolved Date [...] as of this encounter (statuses as of 06/29/2019) Immunizations Name Administration Dates Next Due Influenza [...] of this encounter Last Filed Vital Signs Vital Sign Reading Time Taken Comments Blood Pressure 131/77 06/29/2019 10:37 AM EST Pulse 84 06/29/2019 10:37 AM EST Temperature - - Respiratory Rate - - Oxygen Saturation - - Inhaled Oxygen Concentration - - Weight 71.2 kg (157 lb) 06/29/2019 10:37 AM EST Height 175.3 cm (5' 9") 06/29/2019 10:37 AM EST Body Mass Index 23.18 06/29/2019 10:37 AM EST documented in this encounter Patient Instructions Patient InstructionsStranJessika rodriguez LPN - 06/29/2019 10:00 AM ESTThe patient is instructed to call the office with any question/concerns or if symptoms worsen. documented in this encounter Progress Notes Marla Rojas NP - 06/29/2019 10:00 AM EST Chief Complaint: Chief Complaint Patient presents with New Patient Bilateral hand pain. Xrays. Current Medications: has a current medication list which includes the following prescription(s): adalimumab, alendronate, ascorbic acid, atorvastatin, calcium carbonate, citalopram, clobetasol, folic acid, gabapentin, halobetasol, methotrexate, durable medical equipment see sig, durable medical equipment see sig, nifedipine, prednisone, and sulfamethoxazole-trimethoprim. 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 MRSA (methicillin resistant staph aureus) culture positive 2004 POSITIVE CULTURE Osteoporosis Polyarteritis nodosa Psoriasis 09/22/2013 Psoriatic arthritis 09/22/2013 Rheumatoid arthritis(714.0) Skin rash 08/11/2013 Substance abuse NARCOTIC ABUSE LAST 2013 UTI (lower urinary tract infection) 08/11/2013 Past Surgical History: Past Surgical History: Procedure Laterality Date ANKLE FRACTURE SURGERY APPENDECTOMY colon ischemia COLON SURGERY COLONOSCOPY FRACTURE SURGERY LEG AMPUTATION BELOW KNEE right side PORTACATH PLACEMENT OK AMPUTATION LOW LEG,SECOND CLOSURE Right 06/01/2014 Procedure: Revision of right below knee amputation to above the knee amputation ; Surgeon: Sunil Avilez MD; Location: OR [facility]; Service: General; Laterality: Right; OK ERCP DX COLLECTION SPECIMEN BRUSHING/WASHING N/A 06/17/2017 Procedure: ENDOSCOPIC RETROGRADE CHOLANGIOPANCREATOGRAPHY DX (ERCP), W/WO SPECIMEN COLLECTION, BRUSH/WASH (SEP PROC) with c-arm; Surgeon: Imer Perkins MD ; Location: OR ENDO; Service: Endoscopy; Laterality: N/A; OK LAP,CHOLECYSTECTOMY/GRAPH N/A 08/07/2017 Procedure: LAPAROSCOPIC CHOLECYSTECTOMY; Surgeon: Ivis Mcnair MD; Location: OR 5E; Service: General; Laterality: N/A; OK PRIM PRQ TRLUML MCHNL THRMBC N-COR N-ICRA 1ST N/A 05/30/2014 Procedure: PRIMARY PRECUTANEOUS TRANSLUMINAL MECHANICAL THROMBECTOMY, NONCORONARY,ARTERIAL OR BYPASSGRAFT; Surgeon: Sunil Avilez MD; Location: OR [facility]; Service: Vascular; Laterality: N/A; OK REVSC OPN/PRG FEM/POP W/ANGIOPLASTY UNI N/A 05/30/2014 Procedure: REVASCULARIZATION,ENDOVASCULAR,OPEN OR PERCUTANEOUS,FEMORAL/ POPLITEAL ARTERY W/TRANSLUMINAL ANGIOPLASTY; Surgeon: Sunil Avilez MD; Location: OR [facility]; Service: Vascular; Laterality: N/A; OK SLCTV CATHJ 3RD+ ORD SLCTV ABDL PEL/LXTR BRNCH N/A 05/30/2014 Procedure: SELECTIVE CATHETERIZATION, ARTERIAL; 3RD+ ABDOMINAL/PELVIC/LOWER EXTREMITY BRANCH; Surgeon: Sunil Avilez MD; Location: OR [facility]; Service : Vascular; Laterality: N/A; Past Social History: Social History Socioeconomic History Marital status: Spouse name: Not on file Number of children: Not on file Years of education: Not on file Highest education level: Not on file Occupational History Not on file Social Needs Financial resource strain: Not on file Food insecurity: Worry: Not on file Inability: Not on file Transportation needs: Medical: Not on file Non-medical: Not on file Tobacco Use Smoking status: Current Every Day Smoker Packs/day: 0.25 Years: 30.00 Pack years: 7.50 Types: Cigarettes Last attempt to quit: 07/11/2014 Years since quittin.9 Smokeless tobacco: Never Used Tobacco comment: approximately 5 cigarettes per day Substance and Sexual Activity Alcohol use: Yes Alcohol/week: 0.0 standard drinks Comment: 3 DRINKS A MONTH Drug use: No Comment: PAST NARCOTIC ABUSE. LAST 2013 Sexual activity: Never Lifestyle Physical activity: Days per week: Not on file Minutes per session: Not on file Stress: Not on file Relationships Social connections: Talks on phone: Not on file Gets together: Not on file Attends pentecostal service: Not on file Active member of club or organization: Not on file Attends meetings of clubs or organizations: Not on file Relationship status: Not on file Intimate partner violence: Fear of current or ex partner: Not on file Emotionally abused: Not on file Physically abused: Not on file Forced sexual activity: Not on file Other Topics Concern Not on file Social History Narrative Not on file Dear Dr. Burnett thank you for your kind referral of this patient. She is a 63-year-old female complaining of bilateral hand deformity weakness and numbness affecting all fingers. She complains of lack of function. She has tremors in her hands. She has had symptoms since 2004 and she felt that they have gotten worse with time. 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 She has a history of opioid addiction and has been able to get off them with the help of Dr. Portillo. She has a history of rheumatoid arthritis and psoriatic arthritis. She is on Humira and methotrexate. She thinks she has had a nerve conduction study done years ago. She has had this problem with her bilateral hands for years but now is seeking to get out and about more and is wondering if there is anything that can be done for her. She is able to perform her activities of daily living including doing her hair and brushing her teeth and feeding herself amongst other things. She did have amputation of the right lower extremity at the level of the thigh related to complications regarding the Polyarteritis nodosa. Medical historyintake form reviewed and can be found in the chart. Review of Systems: ROS Medical history intake form reviewed and can be found in the chart. Physical Exam: Visit Vitals BP 131/77 Pulse 84 Ht 1.753 m (5' 9") Wt 71.2 kg (157 lb) BMI 23.18 kg/m Well-developed well-nourished 63-year-old [id number] female alert 3 with pleasant attitude. Bilateral upper extremity skin is intact. There is atrophy of the bilateral dorsal interossei as well as the bilateral thenar musculature and even atrophy into the palmar musculature more so on the right than the left. She has clawing of the bilateral hands but she actually has pretty good gripgrasps of the Index through small fingers. She is very weak and limited with finger abduction and has positive Wartenberg's bilaterally with finger abduction. She cannot perform palmar abduction bilaterally nor long finger crossover. There is paresthesias in both hands all fingers. Radial pulses +2 bilaterally with good capillary refill in the fingers and nail plates are in place. There is good motion in the bilateral wrists and elbows. Giorgi's compression test and elbow flexion tests is equivocal bilaterally. She is not tender to palpation about the bilateral wrists or hands. No swelling or discoloration of the bilateral hands or wrists. Tremors in bilateral hands. Pertinent Findings if applicable (Lab, Radiology, etc): X-rays of the bilateral hands Reveals basal joint and STT joint arthritis as well as MCP joint arthritis bilateral thumbs and some scattered arthritis about the IP joints. We will await radiology report Assessment:Bilateral hand numbness, weakness, and deformity likely related to median and ulnar neuropathy, tremors bilateral hands Plan:Diagnosis discussed. Will obtain nerve conduction studies bilateral upper extremities and those can actually be done today and that will be convenient for the patient because she had some troublefinding our office. We will then have her follow-up with Dr. Martin To go over the results and see if there is anything to be done for further treatment. She is in agreement to plan. Questions were answered. Attending Dr. Martin documented in this encounter Plan of Treatment Date Type Specialty Care Team Description 07/05/2019 Procedure visit Neurology 07/07/2019 Office Visit Orthopedic Surgery Giovanni Martin MD [address] [facility] [address] [place] [address] [phone] 07/21/2019 Clinical Support Rheumatology 10/25/2019 Office Visit Rheumatology Samuel Burnett MD [address] [facility] 2nd [address] [place] [address] [phone] Name Type Priority Associated Diagnoses Date/Time XR Hand 3 or More Views Imaging Routine Bilateral hand pain 06/29/2019 10: 32 AM EST Bilateral Name Type Priority Associated Diagnoses Order Schedule XR Hand 3 or More Views Imaging Routine Bilateral hand pain Expected: 06/28, Bilateral Expires: 06/28/2021 Name Type Priority Associated Diagnoses Order Schedule Referral to Outpatient Referral Routine Bilateral hand pain Ordered: EMG/NCS Bilateral hand 06/29/2019 numbness Health Maintenance Due Date Last Done Comments MMR Vaccines (1 of 1 - 1956 Standard series) Pneumococcal Vaccine: 1961 Pediatrics (0 to [...] Hepatitis C Screening (B. Completed 06/17/2017, 06/16/2017, [id number]) 06/16/2017, Additional history exists HIB Vaccines Aged [...] on patient's age to complete this topic Varicella Vaccines Aged Out No longer eligible based [...]
--- OUTSIDE RECORDS SUMMARY | 2019-07-23 09:31 | XMS REPORT | Summary of Care ---
:1955 Author Organization [facility] Address [address] [place] [address] Care Team Providers Name Role Phone Vandana Burns Primary Care Provider Reason for Referral Surgical (Routine) Status Reason Specialty Diagnoses / Referred By Referred To Procedures Contact Contact Authorized Specialty Orthopedic Diagnoses Hand deformities, acquired, left Hand deformities, acquired, right Mario Burnett Jon, Services Surgery MD ABHI Baker [address] [id number] Phone: Fax: Email: Email: [email or web address] Reason for Visit Reason Comments Follow-up Encounter Details Date Type Department Care Team Description 06/21/2019 Office Visit Jose Burnett Psoriasis arthropathica ( Primary Dx); Rheumatology MD Samuel High risk medication use; [address] [place] [address] Hand deformities, acquired, left; [place], [place] [address] Hand deformities, acquired, right [id number] [place] [address] [phone] Allergies Active Allergy Reactions Severity Noted Date Comments Contrast Dye Other (See Comments) Medium 05/30/2014 Turns Red. documented as of this encounter (statuses as of 06/22/2019) Medications Medication Sig Dispensed Refills Start End Date Status Date ascorbic acid Take 500 mg by 0 Active (VITAMIN C) 500 MG mouth daily. tablet calcium carbonate Take 600 mg by 0 Active (OS-SAMM) 600 MG mouth 2 (two) TABS times daily with meals. Misc. Devices Use as 1 each 0 Active (DURABLE MEDICAL directed. NEED 3 EQUIPMENT SEE SIG) A CANE BECAUSE MISC OF REPETITIVE FALLS Misc. Devices Use as 1 each 0 Active (DURABLE MEDICAL directed. 3 EQUIPMENT SEE SIG) Wheelchair MISC maintenance and battery replacement. citalopram Take 20 mg by 0 Active (CELEXA) 20 MG mouth daily tablet atorvastatin Take 40 mg by 0 Active (LIPITOR) 40 MG mouth daily 7 tablet halobetasol Apply tid to 1 Tube 6 Active (ULTRAVATE) 0.05 % affected area 8 ointment sulfamethoxazole-t TAKE 1 TABLET 36 tablet 5 Active rimethoprim BY MOUTH EVERY 9 (BACTRIM DS,SEPT OTHER DAY DS) 800-160 MG per (THURSDAY, tabletIndications: THURSDAY AND Polyarteritis THURSDAY) nodosa folic acid TAKE THREE 270 tablet 2 Active (FOLVITE) 1 MG TABLETS BY 9 tabletIndications: MOUTH EVERY DAY Psoriatic arthritis clobetasol apply small 120 g 3 11/15/19 Active (TEMOVATE) 0.05 % amount to 9 20 cream affected area bid. alendronate TAKE ONE TABLET 12 tablet 3 Active (FOSAMAX) 70 MG BY MOUTH EVERY 9 tablet WEEK gabapentin TAKE ONE TABLET 360 tablet 1 Active (NEURONTIN) 600 MG BY MOUTH FOUR 9 tabletIndications: TIMES A DAY Psoriatic arthritis NIFEdipine (ADALAT TAKE ONE TABLET 90 tablet 1 Active CC) 30 MG 24 hr BY MOUTH EVERY 9 tablet DAY predniSONE Take 1 tablet 90 tablet 1 07/25/20 Active (DELTASONE) 5 MG by mouth daily 9 19 tablet methotrexate 2.5 Take 4 tablets 48 tablet 3 Active MG by mouth once a 9 tabletIndications: week Psoriatic arthritis Adalimumab 40 Inject 0.4 mLs 2 each 11 Active MG/0.4ML into the skin 9 Subcutaneous every 14 Pen-injector Kit (fourteen) days (HUMIRA)Indication s: Psoriatic arthritis Adalimumab 40 Inject 40 mg 2 each 4 06/21/20 Discontinued MG/0.8ML into the skin 9 19 (Formulary PNKTIndications: every 14 change) Psoriatic (fourteen) days arthritis documented as of this encounter (statuses as of 06/22/2019) Active Problems Problem Noted Date Calculus of gallbladder and bile duct without cholecystitis or obstruction Overview: Added automatically from request for surgery [id number] Complication of amputated stump 07/21/2014 Tobacco use [...] as of this encounter (statuses as of 06/22/2019) Resolved Problems Problem Noted Date Resolved Date [...] as of this encounter (statuses as of 06/22/2019) Immunizations Name Administration Dates Next Due Influenza [...] Sign Reading Time Taken Comments Blood Pressure 128/77 06/21/2019 12:59 PM EST Pulse 99 06/21/2019 12:59 PM EST Temperature 36.6 06/21/2019 12:59 PM EST C (97.9 F) Respiratory Rate 16 06/21/2019 12:59 PM EST Oxygen Saturation 95% 06/21/2019 12:59 PM EST Inhaled Oxygen Concentration - - Weight 71.5 kg (157 lb 9.6 oz) 06/21/2019 12:59 PM EST Height - - Body Mass Index 23.96 04/26/2019 10:43 AM EDT documented in this encounter Progress Notes Samuel Burnett MD - 06/21/2019 1:00 PM EST Subjective: Patient ID: Lyric Rosenthal is a 63 y.o. female. She has a history of psoriatic arthritis, currently being treating with Humira 40 mg every other week, methotrexate 4 tablets per week, folic acid 1 mg per day , prednisone 5 mg per day, Bactrim Thursday,Thursday, and Thursday, and gabapentin 600 mg t.i.d. She was last seen last month, when she receiveda steroid injection for epicondylitis. This resulted in significant improvement of her symptoms. Since then, she has been doing well. Denies any significant joint pain or joint swelling. Rheumatologic review of systems is otherwise unremarkable. The patient does have a history of hepatitis C related polyarteritis nodosa, which was successfully treated with plasmapheresis and cyclophosphamide; however, that condition is currently in remission. In her musculoskeletal exam, she has chronic hand deformities. There is no active synovitis. ASSESSMENT: 1. Psoriatic arthritis, seems to be controlled on Humira and methotrexate. 2. History of hepatitis C related polyarteritis nodosa, treated successfully, sequela including neuropathy, currently on gabapentin. 3. Hand deformities related to #1 and #2. PLAN: 1. Continue medications without changes. 2. Routine labs today. 3. Followup appointment in 4 months or before that if needed. 4. Referral to Dr. Martin, hand surgeon, for evaluation of surgical options for her hand deformities. Results for orders placed or performed in visit on 06/21/19 Sedimentation rate, automated Result Value Ref Range Sed Rate - ESR 10 <30 mm/hr Creatinine with GFR Result Value Ref Range Creatinine 0.79 0.50 - 0.90 mg/dL GFR Non 2008 CDK-EPI 87 >60 mL/min/1.73m2 GFR 2008 CKD-EPI >90 >60 mL/min/1.73m2 C-reactive protein Result Value Ref Range C Reactive Protein <0.5 <8.0 mg/L CBC and Differential Result Value Ref Range White Blood Cell 8.8 4 - 10 10*3/uL Red Blood Cell 4.27 4.1 - 5.3 10*6/uL Hemoglobin 14.5 11.5 - 15.5 g/dL Hematocrit 43.7 36 - 45 % Mean Cell Volume 102.6 (H) 80 - 96 fL Mean Cell Hemoglobin 34.0 (H) 27 - 33 pg Mean Cell Hgb Conc 33.2 32.0 - 36.0 g/dL Red Cell Dist Width 14.0 11.5 - 14.5 % Platelet Count 219 150 - 400 10*3/uL Differential Type Automated Diff Neutrophil 82 % Lymphocyte 11 % Monocyte 5 % Eosinophil 1 % Basophil 1 % Abs Neutrophil 7.32 (H) 1.8 - 7.0 10*3/uL Abs Lymphocyte 0.99 (L) 1.2 - 4.0 10*3/uL Abs Monocyte 0.41 0 - 0.8 10*3/uL Abs Eosinophil 0.05 0 - 0.5 10*3/uL Abs Basophil 0.06 0 - 0.2 10*3/uL Nucleated Red Blood Cells 0 0 - 0 /100 AST Result Value Ref Range AST/SGO 50 (H) <32 U/L ALT Result Value Ref Range ALT/SGP 58 (H) <33 U/L Will repeat labs in 4 weeks and decrease MTX to 2 tabs per week. HPI Lyric has a past medical history of Anemia, Anxiety, Arthritis, ASD (atrial septal defect), ostium secundum (2012), Blood transfusion without reported diagnosis, Depression, Endocarditis, Heart murmur,Hepatitis C, Hypertension, Mononeuritis multiplex associated with vasculitis, MRSA (methicillin resistant staph aureus) culture positive (2004), Osteoporosis, Polyarteritis nodosa, Psoriasis (09/22/2013), Psoriatic arthritis (09/22/2013), Rheumatoid arthritis( 714.0), Skin rash (08/11/2013), Substance abuse, and UTI (lower urinary tract infection) (08/11/2013). Lyric has a past surgical history that includes Leg amputation below knee; colon ischemia; Portacathplacement; Appendectomy; Ankle fracture surgery; pr amputation low leg,second closure (Right, 06/01/2014); pr slctv cathj 3rd+ ord slctv abdl pel/lxtr brnch (N/A, 05/30/2014); pr revsc opn/prg fem/pop w/ angioplasty uni (N/A, 05/30/2014); pr prim prq trluml mchnl thrmbc n-cor n-icra 1st (N/A, 05/30/2014); Colonoscopy; pr ercp dx collection specimen brushing/ washing (N/A, 06/17/2017); Fracture surgery; Colon surgery; and pr lap, cholecystectomy/graph (N/A, 08/07/2017). Her family history includes Cancer in her brother and brother; Coronary art dis in her mother; Earlydeath in her brother and brother; Lupus in her father. Lyric reports that she has been smoking cigarettes. She has a 7.50 pack-year smoking history. She has never used smokeless tobacco. She reports current alcohol use. She reports that she does not use drugs. Lyric has a current medication list which includes the following prescription(s) : adalimumab, alendronate, ascorbic acid, atorvastatin, calcium carbonate, citalopram, clobetasol, folic acid, gabapentin,halobetasol, methotrexate, durable medical equipment see sig, durable medical equipment see sig, nifedipine , prednisone, and sulfamethoxazole-trimethoprim. Lyric is allergic to contrast dye. Review of Systems Constitutional: Negative. HENT: Negative. Eyes: Negative. Respiratory: Negative. Cardiovascular: Negative. Gastrointestinal: Negative. Endocrine: Negative. Genitourinary: Negative. Musculoskeletal: Negative for arthralgias and joint swelling. Skin: Negative. Allergic/Immunologic: Negative. Neurological: Negative. Hematological: Negative. Psychiatric/Behavioral: Negative. Objective: Physical Exam Vitals signs reviewed. Constitutional: Appearance: She is well-developed. HENT: Head: Normocephalic and atraumatic. Eyes: Conjunctiva/sclera: Conjunctivae normal. Neck: Thyroid: No thyromegaly. Trachea: No tracheal deviation. Cardiovascular: Rate and Rhythm: Normal rate and regular rhythm. Pulmonary: Effort: Pulmonary effort is normal. No respiratory distress. Skin: General: Skin is warm and dry. Neurological: Mental Status: She is alert and oriented to person, place, and time. documented in this encounter Plan of Treatment Date Type Specialty Care Team Description 06/27/2019 Office Visit Orthopedic Surgery Samuel Burnett MD [address] [place] [address] [phone] Marla Rojas NP [address] [facility] [address] [place] [address] [phone] 07/21/2019 Clinical Support Rheumatology 10/25/2019 Office Visit Rheumatology Samuel Burnett MD 90 [facility] 2nd Floor [address] [place] [address] [phone] Name Type Priority Associated Order Schedule Diagnoses Referral to Outpatient Referral Routine Hand deformities, Ordered: Orthopedic Surgery acquired, left 06/21/2019 Hand deformities, acquired, right Health Maintenance Due Date Last Done Comments [...] Hepatitis C Screening (B. Completed 06/17/2017, 06/16/2017, [id number]) 06/16/2017, Additional history exists HIB Vaccines Aged [...] this topic documented as of this encounter Procedures Procedure Name Priority Date/Time Associated Comments Diagnosis CREATININE WITH GFR Routine 06/21/2019 1:17 High risk Results for this PM EST medication use procedure are in the results section. SEDIMENTATION RATE, Routine 06/21/2019 1:17 High risk Results for this AUTOMATED PM EST medication use procedure are in the results section. CBC AND DIFFERENTIAL Routine 06/21/2019 1:17 High risk Results for this PM EST medication use procedure are in the results section. C-REACTIVE PROTEIN Routine 06/21/2019 1:17 High risk Results for this PM EST medication use procedure are in the results section. ALT Routine 06/21/2019 1:17 High risk Results for this PM EST medication use procedure are in the results section. AST Routine 06/21/2019 1:17 High risk Results for this PM EST medication use procedure are in the results section. documented in this encounter Results Sedimentation rate, automated (06/21/2019 1:17 PM EST) Sed Rate - ESR 10 <30 mm/hr [facility] Clin Pathology Specimen EDTA Whole Blood Performing Organization Address City/[facility] Phone Number [facility] CLINICAL PATHOLOGY [address] [place] [address] [facility] [address] [place] [address] Pathology Creatinine with GFR (06/21/2019 1:17 PM EST) Creatinine 0.79 0.50 - 0.90 [facility] mg/dL Univ Clin Pathology GFR Non 87 >60 [facility] [place] 2009 CDK-EPI mL/min/1.73m2 Univ Clin Pathology GFR >90 >60 [facility] 2009 CKD-EPI mL/min/1.73m2 [facility] Clin Pathology Specimen Plasma Performing Organization Address [facility] Phone Number [facility] PATHOLOGY [address] [place] [address] [phone] [facility] Clin [address] [place] [address] Pathology C-reactive protein (06/21/2019 1:17 PM EST) C Reactive Protein <0.5 <8.0 mg/L [facility] Clin Pathology Specimen Plasma Performing Organization Address City[facility] Phone Number [facility] PATHOLOGY [address] [place] [address] [facility] [address] [place] [address] Pathology CBC and Differential (06/21/2019 1:17 PM EST) White Blood Cell 8.8 4 - 10 [facility] 10*3/uL Univ Clin Pathology Red Blood Cell 4.27 4.1 - 5.3 [facility] 10*6/uL Univ Clin Pathology Hemoglobin 14.5 11.5 - 15.5 [facility] g/dL Univ Clin Pathology Hematocrit 43.7 36 - 45 % [facility] Pathology Mean Cell Volume 102.6 (H) 80 - 96 fL [facility] Pathology Mean Cell Hemoglobin 34.0 (H) 27 - 33 pg [facility] Pathology Mean Cell Hgb Conc 33.2 32.0 - 36.0 [facility] g/dL Univ Clin Pathology Red Cell Dist Width 14.0 11.5 - 14.5 % [facility] Pathology Platelet Count 219 150 - 400 [facility] 10*3/uL Univ Clin Pathology Differential Type Automated Diff [facility] Pathology Neutrophil 82 % [facility] Pathology Lymphocyte 11 % [facility] Pathology Monocyte 5 % [facility] Pathology Eosinophil 1 % [facility] Pathology Basophil 1 % [facility] Pathology Abs Neutrophil 7.32 (H) 1.8 - 7.0 [facility] Med 10*3/uL Univ Clin Pathology Abs Lymphocyte 0.99 (L) 1.2 - 4.0 [facility] Med 10*3/uL Univ Clin Pathology Abs Monocyte 0.41 0 - 0.8 [facility] Med 10*3/uL Univ Clin Pathology Abs Eosinophil 0.05 0 - 0.5 [facility] 10*3/uL Univ Clin Pathology Abs Basophil 0.06 0 - 0.2 [facility] 10*3/uL Univ Clin Pathology Nucleated Red Blood 0 0 - 0 [facility] Cells /100{WBCs} Univ Clin Pathology Specimen EDTA Whole Blood Performing Organization Address City/[facility] Phone Number [facility] CLINICAL PATHOLOGY [address] [place] [address] [facility] [address] [place] [address] Pathology AST (06/21/2019 1:17 PM EST) AST/SGO 50 (H) <32 U/L [facility] Pathology Specimen Plasma Performing Organization Address City/[facility] Phone Number [facility] CLINICAL PATHOLOGY [address] [place] [address] [facility] [address] [place] [address] Pathology ALT (06/21/2019 1:17 PM EST) ALT/SGP 58 (H) <33 U/L [facility] Clin Pathology Specimen Plasma Performing Organization Address [facility] Phone Number [facility] CL[facility]OLOG[facility] [address] [place] [address] [facility] [address] [place] [address] Pathology documented in this encounter Visit Diagnoses Diagnosis Psoriasis arthropathica - Primary Psoriatic arthropathy High risk medication use Encounter for long-term (current) use of other medications Hand deformities, acquired, left Hand deformities, acquired, right documented in this encounter Additional Health Concerns Infection Noted Time Resolved Time Multiple or Any Other Drug Resistant Organism 07/17/2011 9:16 AM EST documented as of this encounter
--- OUTSIDE RECORDS SUMMARY | 2019-07-23 09:31 | XMS REPORT | Continuity of Care Document ---
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 Cigarettes Daily Smoking Status Reviewed: 05/31/19 Currently smokes 1-5 5 Not going to quit. Cigarettes Daily Smokeless Tobacco Never Used Smokeless Tobacco ETOH Use Rarely consumes alcohol Tobacco Use Start: Unknown Light tobacco smoker (10 or fewer cigarettes/day) Recreational Drug Use Denies Drug Use Allergies, Adverse Reactions, Alerts Active Allergies Reaction Severity Comments Date Iodine 09/28/2017 Inactive Allergies NKDA 11/18/2016 Medications Active Medications SIG Qnty Indications Ordering Date Provider 2 Silicone Locking Use daily, as 2units Z89.619 Iraida Portillo, 12/23/2018 Liners needed for prosthetic device. Wheelchair OT/PT fitting 1units M30.0 Iraida Portillo, [facility]07[facility]. Z89.611 Fosamax take one tablet by Unknown 70mg Tablets mouth once weekly Sulfamethoxazole/Trimethopr take one tablet by Unknown im DS mouth M-W-F 800-160mg Tablets Celexa 1 by mouth every day Unknown 20mg Tablets Methotrexate 4 pills once a week Unknown 2.5mg Tablets Nifedipine ER 30 MG 1 by mouth every day Unknown 30mg Tablets ER 24HR Folic Acid 1 po daily Unknown 5mg Prednisone 4 po daily Unknown 1mg Tablets Gabapentin 1 po qid Samuel Hernandez MD 600mg Tablets Lidocaine Apply A Small Amount To Unknown 5% Ointment Affected Area Two Times A Day Clobetasol Propionate Apply A Small Amount Unknown 0.05% Gel Over Affected Areas With Psoriasis Two Times A Da Atorvastatin Calcium 1 po daily Ivana Oneal MD 40mg Tablets Humira as directed Unknown 40mg/0.8ML PSKT History Medications Macrobid 1 tab by mouth 14caps Iraida Portillo MD 12/16/2018 - 100mg twice a day 12/23/2018 Capsules Immunizations Description No Information Available Vital Signs Date Vital Result Comment 05/31/2019 10:36am BP Systolic 130 mmHg BP Diastolic 78 mmHg Body Temperature 97.6 F Heart Rate 105 /min Respiratory Rate 18 /min Height 67.5 inches 5'7.50" Weight 158.25 lb BMI (Body Mass Index) 24.4 kg/m2 BSA (Body Surface Area) 1.84 m2 [place] body weight in kilograms 62 kg O2 % BldC Oximetry 94 % 01/03/2019 11:03am BP Systolic 128 mmHg BP Diastolic 64 mmHg Body Temperature 97.0 F Heart Rate 98 /min Weight 158.00 lb O2 % BldC Oximetry 90 % Results Test Acquired Date Facility Test Result H/L Range Note Urine 12/07/[address] Urine ENTEROCOCCUS RIVKA Abnormal [address] Culture <SEE NOTE> [place] [address] [phone] Quantity > 100,000 CFU/mL 2 Ast-[id number] 12/07/[address] Penicillin G [address] [place] [address] [phone] Tetracycline >=16 Resistant Nitrofurantoin <=16 Susceptible Ampicillin <=2 Susceptible Ciprofloxacin <=0.5 Susceptible Levofloxacin 1 Susceptible Vancomycin 1 Susceptible Urine Dipstick 12/07/2018 [facility] Ua Color yellow Yellow Ua Clarity clear Clear Ua Leuko 500 Buck/uL High Negative Ua Nitrite negative Negative Ua Urobilinogen 0.2 0.2 - 1.0 E.U./dL Ua Protein negative Negative Ua PH 6.0 Low 6.5-7.5 Ua Blood negative Negative Ua Specific [place] 1.010 1.010-1.030 Ua Ketones negative Negative Ua Bilirubin negative Negative Ua Glucose negative Negative 1 ENTEROCOCCUS FAECALIS 2 > 100,000 CFU/mL Procedures Date Code Description Status 12/07/2018 83845 EKG-Tracing And Report Completed 12/08/2016 [id number] Colonoscopy Completed 07/27/2016 [id number] Mammogram Completed Medical Devices Description No Information Available Encounters Type Date Location Provider Dx Diagnosis Office Visit 01/03/2019 Family Medicine Vandana Burns PA Z89.611 Acquired absence 11:[address]a [address] of right leg above knee Z99.3 Dependence on wheelchair M30.0 Polyarteritis nodosa 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 Office Visit 12/07/2018 10:30a Family Medicine Syeda Burns01.818 Encounter for other [address] BRITTANY Ross preprocedural examination H02.402 Unspecified ptosis of left eyelid I51.9 Heart disease, unspecified Assessments Date Code Description Provider 05/31/2019 Z00.01 Encounter for general adult medical examination Vandana Burns PA with abnormal findings 05/31/2019 Z23 Encounter for immunization Vandana Burns PA 05/31/2019 Z12.31 Encounter for screening mammogram for malignant Vandana Burns PA neoplasm of breast 05/31/2019 M81.0 Age-related osteoporosis without current Vandana Burns PA pathological fracture 05/31/2019 E78.5 Hyperlipidemia, unspecified Vandana Burns PA 05/31/2019 M30.0 Polyarteritis nodosa Vandana Burns PA 05/31/2019 Z71.6 Tobacco abuse counseling Vandana Burns PA 01/03/2019 Z89.611 Acquired absence of right leg above knee Vandana Burns PA 01/03/2019 Z99.3 Dependence on wheelchair Vandana Burns PA 01/03/2019 M30.0 Polyarteritis nodosa Vandana Burns PA 01/03/2019 G56.93 Unspecified mononeuropathy of bilateral upper Vandana Burns PA limbs 12/07/2018 Z01.818 Encounter for other preprocedural examination Vandana Burns PA 12/07/2018 H02.402 Unspecified ptosis of left eyelid Vandana Burns PA 12/07/2018 I51.9 Heart disease, unspecified Vandana Burns PA Plan of Treatment 09/28/2018 - Butch Hernandez MDH02.403 Unspecified ptosis of bilateral eyelidsComments:- left > right- not fatiguable; no diplopia- with brow recruitment- dermatochalasis with what appears to be levator dehissence as wellReferral:Morgan Childers MD, OphthalmologyFollow up:respectfully request eval by [email or web address] Combined forms of age-related cataract, bilateralComments:- not visually significant or bothersome- follow at this time Functional Status Functional Condition Comment Date Status Dependent with ambulating Uses a motorized wheelchair when Left orthosis Active is removed. Mental Status Description No Information Available Referrals Description No Information Available
--- OUTSIDE RECORDS SUMMARY | 2019-07-23 09:31 | XMS REPORT | Summary of Care ---
:1955 Author Organization [facility] Address [address] [place] [address] Care Team Providers Name Role Phone Vandana Burns Primary Care Provider Reason for Visit Consultation (Routine) Status Reason Specialty Diagnoses / Referred By Referred To Contact Procedures Contact Authorized Neurology Diagnoses Bilateral hand pain Bilateral hand numbness Marla Rojas, Neurology Private Procedures EMG B/L upper - [facility] [address] [facility] [address] [place], [place] [address] [address] [place], [place] Phone: [phone] Email: [email or web address] Encounter Details Date Type Department Care Team Description 07/05/2019 Procedure visit [facility] Teresa Kidd Neuropathy; Neurology EMG Richar Ford MD Carpal tunnel syndrome of left wrist Services at [facility] [address] [facility] [place], [place] [address] [facility] [address] [address] [place], [place] [phone] (Fax) [phone] Allergies Active Allergy Reactions Severity Noted Date Comments Contrast Dye Other (See Comments) Medium 05/30/2014 Turns Red. documented as of this encounter (statuses as of 07/05/2019) Medications Medication Sig Dispensed Refills Start Date [...] 07/28/2018 Active methoprim (BACTRIM MOUTH EVERY OTHER ,) DAY (THURSDAY, 800-160 MG per THURSDAY AND [...] as of this encounter (statuses as of 07/05/2019) Active Problems Problem Noted Date Calculus of gallbladder and bile duct without cholecystitis or obstruction Overview: Added automatically from request for surgery [id number] Complication of amputated stump 07/21/2014 Tobacco use [...] as of this encounter (statuses as of 07/05/2019) Resolved Problems Problem Noted Date Resolved Date [...] as of this encounter (statuses as of 07/05/2019) Immunizations Name Administration Dates Next Due Influenza [...] Signs Not on filedocumented in this encounter Plan of Treatment Date Type Specialty Care Team Description 07/07/2019 Office Visit Orthopedic Surgery Giovanni Martin MD [address] [place] [address] [phone] 07/21/2019 Clinical Support Rheumatology 10/25/2019 Office Visit Rheumatology Samuel Burnett MD [address] [facility] 2nd [address] [place] [address] [phone] Health Maintenance Due Date Last Done Comments [...] Hepatitis C Screening (B. Completed 06/17/2017, 06/16/2017, [id number]) 06/16/2017, Additional history exists HIB Vaccines Aged [...] filedocumented in this encounter Visit Diagnoses Diagnosis Neuropathy Mononeuritis of unspecified site Carpal tunnel syndrome of left wrist Carpal tunnel syndrome documented in this encounter Additional Health Concerns Infection Noted Time Resolved Time Multiple or Any Other Drug Resistant Organism 07/17/2011 9:16 AM EST documented as of this encounter
[2019-07-23 09:37] VITALS: BP 148/82
--- NOTE | 2019-07-23 09:49 | UC ---
Upper Extremity HPI - HPI Summary HPI Summary: Fell onto L hand last night after tripping. Feels like pain is worsening. L wrist painful and swollen. - History of Current Complaint Chief Complaint: UCUpperExtremity Stated Complaint: LT HAND INJURY Time Seen by Provider: 07/23/19 09:49 Hx Obtained From: Patient Pain Intensity: 4 Pain Scale Used: 0-10 Numeric Character: Sharp Aggravating Factor(s): Movement Alleviating Factor(s): Nothing - Allergies/Home Medications Allergies/Adverse Reactions: Allergies Allergy/AdvReac Type Severity Reaction Status Date / Time No Known Allergies Allergy Verified 10/28/18 12:58 PMH/Surg Hx/FS Hx/Imm Hx - Additional Past Medical History Additional PMH: amputee RHEUMATOID ARTHRITIS Previously Healthy: Yes Psychological History: Depression - Surgical History Surgical History: Yes Surgery Procedure, Year, and Place: right leg AKA. appendectomy. ischemic bowel. . I&D RIGHT LEG - Family History Known Family History: Positive: Cardiac Disease, Hypertension - Social History Alcohol Use: Occasionally Substance Use Type: None Smoking Status (MU): Light Every Day Tobacco Smoker Type: Cigarettes Amount Used/How Often: 5 cigarettes a day Have You Smoked in the Last Year: Yes - Immunization History Most Recent Influenza Vaccination: 2012 Most Recent Tetanus Shot: unk Most Recent Pneumonia Vaccination: 2012 Review of Systems All Other Systems Reviewed And Are Negative: Yes Constitutional: Negative: Fever Skin: Negative: Bruising Respiratory: Positive: Negative Cardiovascular: Positive: Negative Motor: Positive: Decreased ROM - l WRIST. Negative: Weakness Neurovascular: Negative: Decreased Sensation - l WRIST Musculoskeletal: Positive: Arthralgia - l WRIST, Edema - l WRIST Neurological: Negative: Paresthesia, Numbness Physical Exam Triage Information Reviewed: Yes Appearance: Well-Appearing Vital Signs: Initial Vital Signs Temp 98.6 F 07/23/19 09:32 Pulse 99 07/23/19 09:32 Resp 18 07/23/19 09:32 BP 148/82 07/23/19 09:32 Pulse Ox 97 07/23/19 09:32 Vital Signs Reviewed: Yes Respiratory: Positive: No respiratory distress Musculoskeletal: Positive: ROM Limited @ - l WRIST, Edema @ - l WRIST, Other: - pain when L wrist is manipulated. Neurological: Positive: Alert Skin: Positive: Other - redness at L wrist. Diagnostics - Radiology No standard instances Radiology Interpretation Completed By: Radiologist Summary of Radiographic Findings: MPRESSION: NO EVIDENCE FOR FRACTURE. IF THE PATIENT'S SYMPTOMS PERSIST RECOMMEND FOLLOW-UP IMAGING. Upper Extremity Course/Dx - Course Course Of Treatment: NO fracture in L wrist after falling onto it last night. She tripped. Her vitals are good. XRAY did not show fx. IT is painful but have advised her to use ibuprofen, has hx of OUD so no strong pain meds rx'd. Placede in brace for now. - Differential Dx/Diagnosis Differential Diagnosis/HQI/PQRI: Fracture (Closed), Strain, Sprain, Other Provider Diagnosis: Left wrist pain Discharge ED - Sign-Out/Discharge Documenting (check all that apply): Patient Departure All imaging exams completed and their final reports reviewed: Yes - Discharge Plan Condition: Good Disposition: HOME Patient Education Materials: Wrist Injury (ED) Referrals: Vandana Burns PA [Primary Care Provider] - Additional Instructions: IF worsening please follow up with primary care. - Billing Disposition and Condition Condition: GOOD Disposition: Home - Attestation Statements Provider Attestation: Per institutional requirements, I have reviewed the chart, however, I was not consulted specifically or made aware of this patient by the midlevel provider. I did not personally evaluate, interact with , or disposition this patient.
== END 2019-07-23 10:44 | disposition home or self-care (01) ==
LOC: UCCORT 09:22
DX: M25.532 Pain in left wrist (principal); M06.9 Rheumatoid arthritis, unspecified; F17.210 Nicotine dependence, cigarettes, uncomplicated
CPT/HCPCS: 99211; G0463